=== PATIENT | female | born 1925 | race Caucasian/White ===

== ENCOUNTER → 2016-05-13 | Outpatient (REF) | payer MEDICARE ==
[~2016-05-13] MED LIST: ACET50TA PO; AMLO10TA2 PO; AMLO2.5T PO; ATEN25TA PO; ATENPOW PO; CEPH500C PO; DAILTAB PO; DIGO0.126 OR; FISH1000 PO; FURO40TA2 PO; LEVO125T3 PO; LEVO25TA4 PO; LISIPOW PO; LORA0.5T PO; LORA1TAB PO; LORAPOW30 PO; METO2.5T PO; MIRT7.5T10 PO; REME15TA PO; TORS20TA2 PO; VITA-112 PO; VITAD1000T PO; WARF05TA PO; WARF1TAB35 PO; WARF2TAB44 PO; XARE20TA PO
[2016-05-13 11:31] LABS: INR 2.78
== END ==
PROVIDERS: ATTEND Nurse Practitioner Family
DX: I48.91 Unspecified atrial fibrillation (principal); Z51.81 Encounter for therapeutic drug level monitoring; Z79.01 Long term (current) use of anticoagulants

== ENCOUNTER → 2016-05-20 | Outpatient (REF) | payer MEDICARE ==
[2016-05-20 10:07] LABS: ALBUMIN 3.5 GM/DL (3.2-5.2); ALBUMIN/GLOBULIN RATIO 0.8 (1.00-1.93); BILIRUBIN,TOTAL 0.5 MG/DL (0.2-1.0); CALCIUM LEVEL 8.9 MG/DL (8.8-10.2); CREATININE FOR GFR 1.34 MG/DL (0.55-1.02); GLOMERULAR FILTRATION RATE 39.6 (>32); POTASSIUM SERUM 4.3 MEQ/L (3.5-5.1); TOTAL PROTEIN 7.9 GM/DL (6.4-8.2)
== END ==
PROVIDERS: ATTEND Nurse Practitioner Family
DX: R60.9 Edema, unspecified (principal)